=== PATIENT | female | born 1965 | race African-American/Black ===

== ENCOUNTER → 2017-09-26 | Outpatient (CLI) | payer OTHER ==
[2017-09-26 08:16] LABS: ABSOLUTE EOSINOPHILS 0.1 thou/uL (0.0-0.7); ABSOLUTE LYMPHOCYTES 1.1 thou/uL (0.8-5.3); ABSOLUTE MONOCYTES 0.3 thou/uL (0.0-1.2); ABSOLUTE NEUTROPHILS 2.6 thou/uL (1.6-8.1); BASOPHILS 1.1 %; EOSINOPHILS 2.6 %; HEMATOCRIT 37.5 % (37.0-47.0); HEMOGLOBIN 12.5 gm/dL (12.0-15.0); LYMPHOCYTES 26.3 %; MCH 32.4 pg (26.0-34.0); MCHC 33.4 g/dL (28.0-37.0); MCV 96.9 fL (80.0-100.0); MONOCYTES 7.5 %; MPV 9.2 fl. (7.2-11.1); NUCLEATED RBCS 0 /100WBC; PLATELET COUNT* 190 thou/uL (150-400); POLYS 62.5 %; RBC 3.87 mil/uL (4.20-5.00); RDW-CV 12.5 % (10.5-14.5); WBC 4.2 thou/uL (4.0-11.0)
[2017-09-26 09:09] LABS: ANION GAP 8 mmol/L (7-16); BUN 19 mg/dL (7-18); CALCIUM 9.6 mg/dL (8.5-10.1); CHLORIDE 104 mmol/L (98-107); CO2 28 mmol/L (21-32); GLUCOSE 88 mg/dL (70-99); POTASSIUM 3.9 mmol/L (3.5-5.1); SODIUM 140 mmol/L (136-145)
[2017-09-26 09:14] LABS: ALBUMIN 3.6 g/dL (3.4-5.0); ALKALINE PHOSPHATASE 80 U/L (46-116); CHOLESTEROL 212 mg/dL (<200); HDL CHOLESTEROL 73 mg/dL (>40); LDL CHOLESTEROL 129 mg/dL (<100); SGOT 18 U/L (15-37); SGPT 16 U/L (30-65); TC:HDL 2.9 Ratio (Not establshd); TOTAL BILIRUBIN 0.4 mg/dL (<0.1-1.0); TOTAL PROTEIN 7.6 g/dL (6.4-8.2); TRIGLYCERIDE 51 mg/dL (<150); VLDL 10 mg/dL (<40)
[2017-09-26 09:15] LABS: SERUM ASSESSMENT Clear
[2017-09-26 13:14] LABS: PROLACTIN 28.4 ng/mL (4.8-23.3); TESTOSTERONE 8 ng/dL (3-41)
[2017-09-27 04:06] LABS: GLYCOHEMOGLOBIN (HGB A1C) 4.4 % (4.8-5.6)
== END ==
LOC: M.LAB 07:50
PROVIDERS: Nurse Practitioner Family
DX: N95.1 Menopausal and female climacteric states (principal); E55.9 Vitamin D deficiency, unspecified; Z86.2 Personal history of diseases of the blood and blood-forming organs and certain disorders involving the immune mechanism; Z68.31 Body mass index [BMI] 31.0-31.9, adult

== ENCOUNTER → 2017-12-27 | Outpatient (CLI) | payer OTHER | LOC: M.LAB 15:02 | DX: E55.9 Vitamin D deficiency, unspecified (principal) ==

== ENCOUNTER → 2019-01-08 | Outpatient (CLI) | payer OTHER | LOC: M.RAD 08:01 | DX: Z12.31 Encounter for screening mammogram for malignant neoplasm of breast (principal) ==

== ENCOUNTER → 2019-01-30 | Outpatient (CLI) | payer OTHER ==
[2019-01-30 07:18] LABS: ABSOLUTE EOSINOPHILS 0.1 thou/uL (0.0-0.7); ABSOLUTE LYMPHOCYTES 1.2 thou/uL (0.8-5.3); ABSOLUTE MONOCYTES 0.3 thou/uL (0.0-1.2); ABSOLUTE NEUTROPHILS 1.6 thou/uL (1.6-8.1); BASOPHILS 0.2 %; EOSINOPHILS 2.8 %; HEMATOCRIT 38.2 % (37.0-47.0); HEMOGLOBIN 12.7 gm/dL (12.0-15.0); LYMPHOCYTES 37.7 %; MCHC 33.3 g/dL (28.0-37.0); MCV 98.9 fL (80.0-100.0); MONOCYTES 9.1 %; MPV 8.9 fl. (7.2-11.1); NUCLEATED RBCS 0 /100WBC; PLATELET COUNT* 216 thou/uL (150-400); POLYS 50.2 %; RBC 3.86 mil/uL (4.20-5.00); RDW-CV 12.6 % (10.5-14.5); URINE BILIRUBIN NEGATIVE (Negative); URINE BLOOD NEGATIVE (Negative); URINE CLARITY CLEAR; URINE COLOR YELLOW; URINE GLUCOSE-RANDOM NEGATIVE (Negative); URINE KETONES NEGATIVE (Negative); URINE LEUKOCYTES TRACE (Negative); URINE NITRITE NEGATIVE (Negative); URINE PROTEIN NEGATIVE (Negative); WBC 3.1 thou/uL (4.0-11.0)
[2019-01-30 07:25] LABS: BACTERIA 1-9 Few /HPF (None Seen); CASTS None Seen /LPF (None Seen); CRYSTALS None Seen /LPF (None Seen); MUCUS None Seen strn/LPF (None Seen); RENAL EPITHELIAL CELLS 0-3 Few /LPF (None Seen); SQUAMOUS 4-10 Moderate /LPF (0-3); URINE RBC 0-2 Rare /HPF (0-2); URINE WBC 0-5 Rare /HPF (0-5)
[2019-01-30 07:27] LABS: ALBUMIN 3.4 g/dL (3.4-5.0); ALKALINE PHOSPHATASE 88 U/L (46-116); ANION GAP 7 mmol/L (7-16); BUN 11 mg/dL (7-18); CALCIUM 9.6 mg/dL (8.5-10.1); CHLORIDE 106 mmol/L (98-107); CHOLESTEROL 218 mg/dL (<200); CO2 30 mmol/L (21-32); GLUCOSE 97 mg/dL (70-99); HDL CHOLESTEROL 74 mg/dL (>40); LDL CHOLESTEROL 129 mg/dL (<100); POTASSIUM 4.3 mmol/L (3.5-5.1); SGOT 12 U/L (15-37); SGPT 15 U/L (30-65); SODIUM 143 mmol/L (136-145); TC:HDL 2.9 Ratio (Not establshd); TOTAL BILIRUBIN 0.4 mg/dL (<0.1-1.0); TOTAL PROTEIN 7.3 g/dL (6.4-8.2); TRIGLYCERIDE 75 mg/dL (<150); VLDL 15 mg/dL (<40)
[2019-01-30 07:29] LABS: SERUM ASSESSMENT Clear
[2019-01-31 10:14] LABS: GLYCOHEMOGLOBIN (HGB A1C) 4.7 % (4.8-5.6)
== END ==
LOC: M.LAB 06:41
PROVIDERS: Family Medicine
DX: R53.83 Other fatigue (principal)

== ENCOUNTER → 2019-05-29 | Outpatient (CLI) | payer OTHER ==
[~2019-05-29] MED LIST: AMBIEN5 MG PO; BENTYL 20 MG TA20 M1 PO; ZOFRAN ODT4 MG DISSOLVE
== END ==
LOC: M.RAD 08:15
DX: M79.89 Other specified soft tissue disorders (principal); M76.891 Other specified enthesopathies of right lower limb, excluding foot

== ENCOUNTER 2019-05-30 14:27 | Emergency (ER) | payer OTHER ==
[~2019-05-30] VITALS: Ht 167.6 cm; Wt 86.2 kg
--- NOTE | ~2019-05-30 | EKG ---
[place] [address] ELECTROCARDIOGRAM REPORT Name: MADHU FONTANA Room: [facility]#: [id number] Admission: 05/30/19 Attend Phys: Discharge: Date of : 61 Date of Service: 05/30/19 1500 Report #: [id number] THIS REPORT FOR: cc: Ghassan Samuels Russell J. 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
[2019-05-30] MEDS ORDERED: AMBIEN5 MG PO (14:43)
[2019-05-30 15:18] LABS: ABSOLUTE LYMPHOCYTES 0.5 thou/uL (0.8-5.3); ABSOLUTE MONOCYTES 0.3 thou/uL (0.0-1.2); BASOPHILS 0.4 %; EOSINOPHILS 0.7 %; HEMOGLOBIN 13.3 gm/dL (12.0-15.0); LYMPHOCYTES 12.9 %; MCH 33.1 pg (26.0-34.0); MCV 97.5 fL (80.0-100.0); MONOCYTES 7.7 %; MPV 8.8 fl. (7.2-11.1); NUCLEATED RBCS 0 /100WBC; PLATELET COUNT* 193 thou/uL (150-400); POLYS 78.3 %; RDW-CV 12.6 % (10.5-14.5); WBC 3.9 thou/uL (4.0-11.0)
[2019-05-30 15:20] LABS: CALCIUM 8.6 mg/dL (8.5-10.1); CREATININE 0.9 mg/dL (0.6-1.3); POTASSIUM 3.3 mmol/L (3.5-5.1)
[2019-05-30 15:24] LABS: ALBUMIN 3.4 g/dL (3.4-5.0); TOTAL BILIRUBIN 0.5 mg/dL (<0.1-1.0); TOTAL PROTEIN 7.6 g/dL (6.4-8.2)
[2019-05-30 15:26] LABS: URINE BILIRUBIN NEGATIVE (Negative); URINE BLOOD 2+ (Negative); URINE CLARITY CLEAR; URINE COLOR YELLOW; URINE GLUCOSE-RANDOM NEGATIVE (Negative); URINE KETONES NEGATIVE (Negative); URINE LEUKOCYTES-REFLEX 1+ (Negative); URINE NITRITE-REFLEX NEGATIVE (Negative); URINE PROTEIN NEGATIVE (Negative); URINE SPECIFIC GRAVITY >= 1.030 (1.005-1.030); URINE UROBILINOGEN 0.2 E.U./dl (0.2-1.0)
[2019-05-30 15:38] LABS: SQUAMOUS >10 Many /LPF (0-3)
[2019-05-30 15:39] LABS: BACTERIA-REFLEX 1-9 Few /HPF (None Seen); CASTS None Seen /LPF (None Seen); CRYSTALS None Seen /LPF (None Seen); MUCUS 4-6 Moderate strn/LPF (None Seen); URINE WBC-REFLEX 6-15 Few /HPF (0-5)
[2019-05-30 15:40] LABS: URINE RBC 0-2 Rare /HPF (0-2)
[2019-05-30] MEDS ORDERED: BENTYL 20 MG TA20 M1 PO (16:49)
[2019-05-30] MEDS ORDERED: ZOFRAN ODT4 MG DISSOLVE (16:49)
[2019-05-30 17:01] VITALS: BP 135/72
== END 2019-05-30 17:02 | disposition home or self-care (01) ==
LOC: M.ERS 14:27
PROVIDERS: Emergency Medicine Emergency Medical Services
DX: K52.9 Noninfective gastroenteritis and colitis, unspecified (principal); Z90.711 Acquired absence of uterus with remaining cervical stump; Z88.6 Allergy status to analgesic agent; Z88.5 Allergy status to narcotic agent; Z88.2 Allergy status to sulfonamides

== ENCOUNTER → 2019-08-09 | Outpatient (CLI) | payer OTHER | LOC: M.LAB 07:28 | DX: Z11.59 Encounter for screening for other viral diseases (principal); Z20.828 Contact with and (suspected) exposure to other viral communicable diseases ==

== ENCOUNTER → 2020-02-05 | Outpatient (CLI) | payer OTHER ==
[2020-02-05 07:23] LABS: ABSOLUTE EOSINOPHILS 0.1 thou/uL (0.0-0.7); ABSOLUTE LYMPHOCYTES 1.1 thou/uL (0.8-5.3); ABSOLUTE MONOCYTES 0.3 thou/uL (0.0-1.2); ABSOLUTE NEUTROPHILS 1.5 thou/uL (1.6-8.1); BASOPHILS 0.3 %; EOSINOPHILS 3.5 %; HEMATOCRIT 38.6 % (37.0-47.0); HEMOGLOBIN 12.8 gm/dL (12.0-15.0); LYMPHOCYTES 35.8 %; MCH 32.9 pg (26.0-34.0); MCHC 33.1 g/dL (28.0-37.0); MCV 99.6 fL (80.0-100.0); MONOCYTES 8.6 %; MPV 8.3 fl. (7.2-11.1); NUCLEATED RBCS 0 /100WBC; PLATELET COUNT* 221 thou/uL (150-400); POLYS 51.8 %; RBC 3.88 mil/uL (4.20-5.00); RDW-CV 12.9 % (10.5-14.5)
[2020-02-05 07:25] LABS: URINE BILIRUBIN NEGATIVE (Negative); URINE BLOOD NEGATIVE (Negative); URINE CLARITY CLEAR; URINE COLOR YELLOW; URINE GLUCOSE-RANDOM NEGATIVE (Negative); URINE KETONES NEGATIVE (Negative); URINE LEUKOCYTES-REFLEX 1+ (Negative); URINE NITRITE-REFLEX NEGATIVE (Negative); URINE PROTEIN NEGATIVE (Negative)
[2020-02-05 07:30] LABS: SQUAMOUS >10 Many /LPF (0-3)
[2020-02-05 07:31] LABS: BACTERIA-REFLEX 1-9 Few /HPF (None Seen); CASTS None Seen /LPF (None Seen); CRYSTALS None Seen /LPF (None Seen); MUCUS >6 Heavy strn/LPF (None Seen); URINE RBC None Seen /HPF (0-2); URINE WBC-REFLEX 0-5 Rare /HPF (0-5)
[2020-02-05 07:58] LABS: ALBUMIN 3.8 g/dL (3.4-5.0); ALKALINE PHOSPHATASE 86 U/L (46-116); ANION GAP 6 mmol/L (7-16); BUN 14 mg/dL (7-18); CALCIUM 9.6 mg/dL (8.5-10.1); CHLORIDE 106 mmol/L (98-107); CHOLESTEROL 221 mg/dL (<200); CO2 32 mmol/L (21-32); CREATININE 1.1 mg/dL (0.6-1.3); GLUCOSE 100 mg/dL (70-99); HDL CHOLESTEROL 74 mg/dL (>40); LDL CHOLESTEROL 129 mg/dL (<100); SGOT 16 U/L (15-37); SGPT 21 U/L (30-65); SODIUM 144 mmol/L (136-145); TOTAL BILIRUBIN 0.5 mg/dL (<0.1-1.0); TOTAL PROTEIN 7.9 g/dL (6.4-8.2); TRIGLYCERIDE 91 mg/dL (<150); VLDL 18 mg/dL (<40)
[2020-02-05 08:00] LABS: SERUM ASSESSMENT Clear
[2020-02-06 02:08] LABS: GLYCOHEMOGLOBIN (HGB A1C) 4.5 % (4.8-5.6)
== END ==
LOC: M.LAB 06:57
PROVIDERS: ATTEND Nurse Practitioner Family
DX: Z00.01 Encounter for general adult medical examination with abnormal findings (principal); E55.9 Vitamin D deficiency, unspecified; R10.30 Lower abdominal pain, unspecified; Z86.2 Personal history of diseases of the blood and blood-forming organs and certain disorders involving the immune mechanism

== ENCOUNTER → 2020-02-11 | Outpatient (CLI) | payer OTHER | LOC: M.ULTRA 02-05 09:55 | PROVIDERS: ATTEND Nurse Practitioner Family | DX: Z12.31 Encounter for screening mammogram for malignant neoplasm of breast (principal); R10.9 Unspecified abdominal pain ==

== ENCOUNTER → 2020-02-17 | Outpatient (CLI) | payer OTHER | LOC: M.CT 07:26 | PROVIDERS: ATTEND Nurse Practitioner Family | DX: K44.9 Diaphragmatic hernia without obstruction or gangrene (principal); R10.9 Unspecified abdominal pain; R31.9 Hematuria, unspecified ==

== ENCOUNTER → 2020-02-24 | Outpatient (CLI) | payer OTHER | LOC: M.MRI 11:06 | PROVIDERS: ATTEND Orthopaedic Surgery | DX: S83.281A Other tear of lateral meniscus, current injury, right knee, initial encounter (principal); M23.91 Unspecified internal derangement of right knee; M25.761 Osteophyte, right knee; M17.11 Unilateral primary osteoarthritis, right knee; X58.XXXA Exposure to other specified factors, initial encounter; Y93.89 Activity, other specified; Y92.89 Other specified places as the place of occurrence of the external cause; Y99.8 Other external cause status ==

== ENCOUNTER → 2020-04-19 | Outpatient (CLI) | payer OTHER | LOC: M.LAB 10:23 | PROVIDERS: ATTEND Orthopaedic Surgery | DX: Z01.812 Encounter for preprocedural laboratory examination (principal); Z20.828 Contact with and (suspected) exposure to other viral communicable diseases ==

== ENCOUNTER → 2020-12-06 | Outpatient (CLI) | payer OTHER ==
[2020-12-06 07:31] LABS: ABSOLUTE EOSINOPHILS 0.1 thou/uL (0.0-0.7); EOSINOPHILS 2.7 %
[2020-12-06 07:33] LABS: ABSOLUTE LYMPHOCYTES 1.1 thou/uL (0.8-5.3); ABSOLUTE MONOCYTES 0.3 thou/uL (0.0-1.2); ABSOLUTE NEUTROPHILS 1.6 thou/uL (1.6-8.1); BASOPHILS 1.4 %; HEMATOCRIT 37.9 % (37.0-47.0); HEMOGLOBIN 12.2 gm/dL (12.0-15.0); LYMPHOCYTES 34.3 %; MCH 31.8 pg (26.0-34.0); MCHC 32.2 g/dL (28.0-37.0); MCV 98.6 fL (80.0-100.0); MONOCYTES 9.2 %; MPV 8.3 fl. (7.2-11.1); NUCLEATED RBCS 0 /100WBC; PLATELET COUNT* 204 thou/uL (150-400); POLYS 52.4 %; RBC 3.85 mil/uL (4.20-5.00); RDW-CV 12.9 % (10.5-14.5); WBC 3.1 thou/uL (4.0-11.0)
[2020-12-06 08:08] LABS: ALBUMIN 3.5 g/dL (3.4-5.0); ALKALINE PHOSPHATASE 87 U/L (46-116); ANION GAP 8 mmol/L (7-16); BUN 19 mg/dL (7-18); CHLORIDE 106 mmol/L (98-107); CHOLESTEROL 198 mg/dL (<200); CO2 29 mmol/L (21-32); GLUCOSE 103 mg/dL (70-99); HDL CHOLESTEROL 75 mg/dL (>40); LDL CHOLESTEROL 106 mg/dL (<100); POTASSIUM 4.6 mmol/L (3.5-5.1); SERUM ASSESSMENT Clear; SGOT 14 U/L (15-37); SGPT 18 U/L (30-65); SODIUM 143 mmol/L (136-145); TC:HDL 2.6 Ratio (Not establshd); TOTAL BILIRUBIN 0.4 mg/dL (<0.1-1.0); TOTAL PROTEIN 7.1 g/dL (6.4-8.2); TRIGLYCERIDE 85 mg/dL (<150); VLDL 17 mg/dL (<40)
[2020-12-07 02:06] LABS: GLYCOHEMOGLOBIN (HGB A1C) 4.8 % (4.8-5.6)
== END ==
LOC: M.LAB 07:11
PROVIDERS: ATTEND Nurse Practitioner Family
DX: Z00.01 Encounter for general adult medical examination with abnormal findings (principal); R53.83 Other fatigue; R73.03 Prediabetes; E55.9 Vitamin D deficiency, unspecified; Z86.2 Personal history of diseases of the blood and blood-forming organs and certain disorders involving the immune mechanism

== ENCOUNTER → 2020-12-23 | Outpatient (CLI) | payer OTHER | LOC: M.RAD 11:55 | PROVIDERS: ATTEND Nurse Practitioner Family | DX: M17.11 Unilateral primary osteoarthritis, right knee (principal); M25.761 Osteophyte, right knee ==

== ENCOUNTER → 2021-02-23 | Outpatient (CLI) | payer OTHER | LOC: M.RAD 09:38 | PROVIDERS: ATTEND Nurse Practitioner Family | DX: Z12.31 Encounter for screening mammogram for malignant neoplasm of breast (principal); N64.89 Other specified disorders of breast ==

== ENCOUNTER → 2021-03-14 | Outpatient (CLI) | payer OTHER ==
--- NOTE | 2021-03-14 12:26 | 2DMMODE ---
[place] [address] 2 D/M-MODE ECHOCARDIOGRAM Name: MADHU FONTANA [id number] Admission: 03/14/21 Attend Phys: Edinson Solis, Discharge: Date of : 61 Date of Service: 03/14/21 1226 Report #: [id number] THIS REPORT FOR: cc: Melody Samuels Tami FNP Blick, David R. MD [facility] ~ APPROVED REPORT Study performed: 03/14/2021 12:14:19 EXAM: Comprehensive 2D, Doppler, and color-flow Echocardiogram Patient Location: Out-Patient BSA: 1.96 HR: 59 bpm BP: 128/72 mmHg Other Information Study Quality: Excellent Indications Tachycardia 2D Dimensions IVSd: 8.02 (7-11mm) LVOT Diam: 20.89 (18-24mm) LVDd: 48.07 mm PWd: 8.43 (7-11mm) Ascending Ao: 28.55 (22-36mm) LVDs: 30.46 (25-40mm) Aortic Root: 27.74 mm Volumes Left Atrial Volume (Systole) LA ESV Index: 12.90 mL/m2 Aortic Valve AoV Peak Evangelista.: 1.44 m/s AO Peak Gr.: 8.32 mmHg LVOT Max P.38 mmHg AO Mean Gr.: 4.01 mmHg LVOT Mean P.62 mmHg LVOT Max V: 0.92 m/s AO V2 VTI: 31.54 cm LVOT Mean V: 0.59 m/s JOSE DANIEL (VTI): 2.55 cm2 LVOT V1 VTI: 23.50 cm Mitral Valve E/A Ratio: 1.00 [place] [address] 2 D/M-MODE ECHOCARDIOGRAM Name: MADHU FONTANA Room: [facility]#: [id number] Admission: 03/14/21 Attend Phys: Edinson Solis, Discharge: Date of : 61 Date of Service: 03/14/21 1226 Report #: [id number] MV Decel. Time: 219.63 ms MV E Max Evangelista.: 0.77 m/s MV PHT: 63.69 ms MVA (PHT): 3.45 cm2 TDI E/Lateral E': 6.42 E/Medial E': 7.70 Medial E' Evangelista.: 0.10 m/s Lateral E' Evangelista.: 0.12 m/s Pulmonary Valve PV Peak Evangelista.: 0.86 m/s PV Peak Gr.: 2.95 mmHg Tricuspid Valve RAP Estimate: 5.00 mmHg TR Peak Gr.: 20.60 mmHg RVSP: 25.60 mmHg PA Pressure: 25.60 mmHg Left Ventricle The left ventricle is normal size. There is normal LV segmental wall motion. There is normal left ventricular wall thickness. Left ventricular systolic function is normal. The left ventricular ejection fraction is within the normal range. LVEF is 55-60%. The left ventricular diastolic function is normal. Right Ventricle The right ventricle is normal size. The right ventricular systolic function is normal. Atria The left atrium size is normal. The right atrium size is normal. Aortic Valve The aortic valve is normal in structure. No aortic regurgitation is present. There is no aortic valvular stenosis. Mitral Valve The mitral valve is normal in structure. There is no mitral valve regurgitation noted. No evidence of mitral valve stenosis. Tricuspid Valve The tricuspid valve is normal in structure. Mild tricuspid regurgitation[place] [address] 2 D/M-MODE ECHOCARDIOGRAM Name: MADHU FONTANA Room: [facility]#: [id number] Admission: 03/14/21 Attend Phys: Edinson Solis, Discharge: Date of : 61 Date of Service: 03/14/21 1226 Report #: [id number] The pulmonary valve is normal in structure. There is trace pulmonic valvular regurgitation. Great Vessels The aortic root is normal in size. IVC is normal in size and collapses >50% with inspiration. Pericardium There is no pericardial effusion. <Conclusion> Left ventricular systolic function is normal. The left ventricular ejection fraction is within the normal range. <ELECTRONICALLY SIGNED> By: Jagdeep Tovar MD, FACC 03/14/21 1226 1226 122 Jagdeep Tovar MD, FACC /INF
== END ==
LOC: M.CRD 10:41
PROVIDERS: ATTEND Internal Medicine Cardiovascular Disease
DX: I07.1 Rheumatic tricuspid insufficiency (principal); I47.1 Supraventricular tachycardia; R01.1 Cardiac murmur, unspecified

== ENCOUNTER → 2021-05-20 | Outpatient (CLI) | payer OTHER ==
[2021-05-20 09:23] LABS: HEMATOCRIT 40.3 % (37.0-47.0); MCH 32.1 pg (26.0-34.0); MCHC 32.2 g/dL (28.0-37.0); MCV 99.5 fL (80.0-100.0); MPV 8.5 fl. (7.2-11.1); RBC 4.05 mil/uL (4.20-5.00); RDW-CV 12.4 % (10.5-14.5)
[2021-05-20 10:51] LABS: ALBUMIN 3.8 g/dL (3.4-5.0); ALKALINE PHOSPHATASE 99 U/L (46-116); ANION GAP 8 mmol/L (7-16); BUN 13 mg/dL (7-18); CALCIUM 9.4 mg/dL (8.5-10.1); CHLORIDE 106 mmol/L (98-107); CHOLESTEROL 234 mg/dL (<200); CO2 27 mmol/L (21-32); GLUCOSE 103 mg/dL (70-99); HDL CHOLESTEROL 85 mg/dL (>40); LDL CHOLESTEROL 129 mg/dL (<100); POTASSIUM 4.4 mmol/L (3.5-5.1); SERUM ASSESSMENT CLEAR; SGOT 14 U/L (15-37); SGPT 15 U/L (30-65); SODIUM 141 mmol/L (136-145); TC:HDL 2.8 Ratio (Not establshd); TOTAL BILIRUBIN 0.5 mg/dL (<0.1-1.0); TOTAL PROTEIN 7.6 g/dL (6.4-8.2); TRIGLYCERIDE 103 mg/dL (<150); VLDL 21 mg/dL (<40)
[2021-05-21 07:35] LABS: GLYCOHEMOGLOBIN (HGB A1C) 4.7 % (4.8-5.6)
== END ==
LOC: M.LAB 09:03
PROVIDERS: ATTEND Nurse Practitioner Family
DX: Z00.01 Encounter for general adult medical examination with abnormal findings (principal); E55.9 Vitamin D deficiency, unspecified; E78.2 Mixed hyperlipidemia; R73.03 Prediabetes; R89.9 Unspecified abnormal finding in specimens from other organs, systems and tissues; R53.83 Other fatigue